=== PATIENT | male | born 1950 | race Caucasian/White ===

== ENCOUNTER → 2016-10-26 | Outpatient (CLI) | payer MEDICARE, OTHER ==
--- NOTE | 2016-10-26 15:12 | PCVCIMAG ---
APPROVED REPORT Exam: Stress Echocardiogram Indication: CAD , CAD s/p CABG, Bradycardia, HTN Patient Location: Echo lab Stress Nurse: Cary Erickson RN Status: routine Ht: 5 ft 10 in HR: 47 bpm BP: 130/78 mmHg Rhythm: Sinus Bradycardia Procedure The patient underwent an Exercise Stress Test using the Robe Protocol. Blood pressure, heart rate, and EKG were monitored. An Echocardiogram was performed by marine engineering technicians in four stages in quad fashion. At peak stress, four selected images were obtained and placed side by side with resting images for comparison. Stress Test Details Stress Test: Exercise stress testing was performed using a Robe protocol. HR Resting HR: 47 bpmMax Heart Rate (APMHR): 152 bpm Max HR Achieved: 157 bpmTarget HR (85% APMHR): 129 bpm % of APMHR: 103 Recovery HR: 74 bpm HR response to stress: Normal HR response to stress BP Resting BP: 130/78 mmHg Max BP: 174/70 mmHg Recovery BP: 150/70 mmHg ECG Resting ECG: Sinus Rhythm Stress ECG: Sinus Rhythm Arrhythmia: None Recovery ECG: Sinus Rhythm Recovery Arrhythmia: None Clinical Reason for Termination: Maximal effort Stress Symptoms: Dyspnea Exercise duration: 12 min 30 sec Highest Stage Achieved: Stage 5: 5.0 mph at 18% grade. Exercise capacity: 15.3 METs Overall Exercise Capacity for Age: Good Pre-Stress Echo The resting Echocardiogram showed normal left ventricular contractility with an estimated Ejection Fraction of about 50%. Normal wall motion in all segments on baseline images. Post-Stress Echo The stress Echocardiogram showed normal left ventricular contractility with an estimated Ejection Fraction of about 60%. Normal augmentation of wall motion in all segments on post stress images. Clinical No clinical or ECG evidence for ischemia. Conclusion Clinical Response: Non-ischemic Exercise Capacity: Superior Stress ECG Response: Non-ischemic Stress Echo Images: Non-ischemic Other Information Study Quality: Adequate
== END | disposition home or self-care (01) ==
LOC: PCVCIMAG 09:17
PROVIDERS: ATTEND Internal Medicine Cardiovascular Disease
DX: I25.10 Atherosclerotic heart disease of native coronary artery without angina pectoris (principal); I10 Essential (primary) hypertension; Z95.5 Presence of coronary angioplasty implant and graft
CPT/HCPCS: 93325; 93351

== ENCOUNTER → 2018-03-01 | Outpatient (CLI) | payer MEDICARE, OTHER ==
--- NOTE | 2018-03-01 15:20 | PCVCIMAG ---
APPROVED REPORT Study performed: 03/01/2018 09:52:36 Exam: Stress Echocardiogram Indication: CAD s/p CABG Patient Location: Echo lab Stress Nurse: Felecia Campoverde RN Status: routine Ht: 5 ft 10 in HR: 45 bpm BP: 122/80 mmHg Rhythm: NSR Medical History Medical History: CAD s/p CABG Exercise History: Physically active Procedure The patient underwent an Exercise Stress Test using the Robe Protocol. Blood pressure, heart rate, and EKG were monitored. An Echocardiogram was performed by relay technician in four stages in quad fashion. At peak stress, four selected images were obtained and placed side by side with resting images for comparison. Stress Test Details Stress Test: Exercise stress testing was performed using a Robe protocol. HR Resting HR: 45 bpmMax Heart Rate (APMHR): 151 bpm Max HR Achieved: 150 bpmTarget HR (85% APMHR): 128 bpm % of APMHR: 99 Recovery HR: 69 bpm HR response to stress: Normal HR response to stress BP Resting BP: 122/80 mmHg Max BP: 180/74 mmHg Recovery BP: 124/68 mmHg BP response to stress: Normal blood pressure response to stress. ECG Resting ECG: Sinus Bradycardia Stress ECG: Sinus Rhythm Recovery ECG: Sinus Rhythm Clinical Reason for Termination: Maximal effort Exercise duration: 12 min sec Highest Stage Achieved: Stage 4: 4.2 mph at 16% grade. Exercise capacity: 13.40 METs Overall Exercise Capacity for Age: Excellent Pre-Stress Echo The resting Echocardiogram showed normal left ventricular contractility with an estimated Ejection Fraction of about 55-60%. Normal wall motion in all segments on baseline images. Post-Stress Echo The stress Echocardiogram showed normal left ventricular contractility with an estimated Ejection Fraction of about 60-65%. Normal augmentation of wall motion in all segments on post stress images. Clinical No clinical or ECG evidence for ischemia. Conclusion Clinical Response: Non-ischemic Exercise Capacity: Superior Stress ECG Response: Non-ischemic Stress Echo Images: Non-ischemic The left ventricle is normal in size and wall thickness in both the rest and stress images. Other Information Study Quality: Good <Conclusion> The left ventricle is normal in size and wall thickness in both the rest and stress images.
== END | disposition home or self-care (01) ==
LOC: PCVCIMAG 16:00
PROVIDERS: ATTEND Internal Medicine Cardiovascular Disease
DX: I25.10 Atherosclerotic heart disease of native coronary artery without angina pectoris (principal); E78.00 Pure hypercholesterolemia, unspecified; I10 Essential (primary) hypertension; E78.5 Hyperlipidemia, unspecified
CPT/HCPCS: 93325; 93351

== ENCOUNTER → 2018-11-27 | Outpatient (CLI) | payer MEDICARE, OTHER | END | disposition home or self-care (01) | LOC: PCVCCLINIC 11:30 | PROVIDERS: ATTEND Nurse Practitioner Adult Health | DX: I25.10 Atherosclerotic heart disease of native coronary artery without angina pectoris (principal); E78.00 Pure hypercholesterolemia, unspecified; R00.1 Bradycardia, unspecified; I10 Essential (primary) hypertension; Z79.82 Long term (current) use of aspirin; Z88.8 Allergy status to other drugs, medicaments and biological substances | CPT/HCPCS: 36415; 80061; 93005; G0463 ==